=== PATIENT | female | born 1950 | race African-American/Black ===

== ENCOUNTER 2017-11-11 12:30 | Emergency (ER) | END 2017-11-11 19:52 | disposition left against medical advice (07) ==

== ENCOUNTER 2018-01-08 16:53 | Inpatient (IN) | END 2018-01-09 14:35 | disposition home or self-care (01) | DRG 378 ==

== ENCOUNTER 2018-02-18 18:52 | Inpatient (IN) | END 2018-02-19 20:35 | disposition short-term general hospital (02) | DRG 378 ==

== ENCOUNTER 2018-07-27 17:06 | Emergency (ER) | END 2018-07-27 22:20 | disposition home or self-care (01) ==

== ENCOUNTER 2018-10-20 18:36 | Inpatient (IN) | payer OTHER ==
[~2018-10-20] VITALS: Ht 172.7 cm; Wt 126.0 kg
[~2018-10-20 18:36] MED LIST: DIAZ2TAB3 PO; METO-319 PO; PANT40TA4 PO; PRAV20TA63 PO; SUCR1TAB56 PO; TRAZ-111 PO; [UNRECOGNIZED DRUG - CODE] PO
[2018-10-21] VITALS (9 sets, daily range): BP systolic 117–155; BP diastolic 65–89; PULSE 62–76; RESP 17–20; Ht 172.7 cm; Wt 126.0 kg
[2018-10-21] MEDS ORDERED: SOD CHLORIDE 0.9% 1,000 ML IV STA (00:04)
[2018-10-21] MEDS ORDERED: SOD CHLORIDE 0.9% 250 ML IV* ONE (03:25)
--- NOTE | 2018-10-21 03:25 | ERD ---
ER Documentation Chief Complaint Chief Complaint blood in stool for 3 days, lower AP w/ SOB/weakness. hx of anemia HPI This very pleasant 67-year female comes in with complaints of blood in her stool for the past 3 days with no abdominal pain. She complains of weakness as well. She has a history of anemia and GI bleed in the past. Denies any fevers chills nausea or vomiting. Denies any chest pain. Denies any palpitations. ROS All systems reviewed and are negative except as per history of present illness. Medications Home Meds Reported Medications Trazodone Hcl* (Trazodone Hcl*) 50 Mg Tablet, 100 MG PO QHS, #30 TAB 07/27/18 Verapamil Hcl* (Verapamil ER*) 300 Mg Cap24h.pel, 300 MG PO HS, CAP 07/27/18 Metoprolol Succinate* (Toprol XL*) 50 Mg Tab.er.24h, 50 MG PO DAILY, #30 TAB 07/27/18 Diazepam* (Diazepam*) 2 Mg Tablet, 2 MG PO Q12H, TAB 01/04/18 Pantoprazole* (Pantoprazole*) 40 Mg Tablet.dr, 40 MG PO AC BREAKFAST DINNER, TAB 01/04/18 Sucralfate* (Carafate*) 1 Gm Tab, 1 GM PO BID, TAB 01/04/18 Pravastatin Sodium* (Pravastatin Sodium*) 20 Mg Tablet, 20 MG PO HS, TAB 01/04/18 Allergies Allergies: Coded Allergies: Penicillins (Verified Allergy, Mild, 07/27/18) PMhx/Soc History of Surgery: Yes (HYSTERECTOMY,LUMBAR SX,GASTRIC BYPASS, tonsilectomy ) Anesthesia Reaction: No Hx Neurological Disorder: No Hx Respiratory Disorders: No Hx Cardiac Disorders: Yes (HTN,HYPERLIPIDEMIA) Hx Psychiatric Problems: Yes (anxiety ) Hx Miscellaneous Medical Probl: Yes (ulcer ) Hx Alcohol Use: No Hx Substance Use: No Hx Tobacco Use: No Smoking Status: Former smoker Physical Exam Vitals Vital Signs Date Temp Pulse Resp B/P (MAP) Pulse Ox O2 O2 Flow FiO2 Time Delivery Rate 10/21/18 98.4 70 17 133/84 100 Room Air 02:00 (100) 10/20/18 97.9 75 22 147/84 98 19:12 (105) Physical Exam Const: No acute distress Head: Atraumatic Eyes: Normal Conjunctiva ENT: Normal External Ears, Nose and Mouth. Neck: Full range of motion. No meningismus. Resp: Clear to auscultation bilaterally Cardio: Regular rate and rhythm, no murmurs Abd: Soft, non tender, non distended. Normal bowel sounds Skin: No petechiae or rashes Back: No midline or flank tenderness Ext: No cyanosis, or edema Neur: Awake and alert Psych: Normal Mood and Affect Result Diagram: 10/21/188 10/21/18 0138 Results 24 hrs Laboratory Tests Test 10/21/18 01:38 White Blood Count 5.7 10^3/ul Red Blood Count 2.56 10^6/ul Hemoglobin 7.2 g/dl Hematocrit 23.3 % Mean Corpuscular Volume 91.0 fl Mean Corpuscular Hemoglobin 28.1 pg Mean Corpuscular Hemoglobin Concent 30.9 g/dl Red Cell Distribution Width 14.5 % Platelet Count 188 10^3/UL Mean Platelet Volume 9.8 fl Immature Granulocytes % 0.300 % Neutrophils % 57.3 % Lymphocytes % 20.5 % Monocytes % 11.4 % Eosinophils % 10.0 % Basophils % 0.5 % Nucleated Red Blood Cells % 0.0 /100WBC Immature Granulocytes # 0.020 10^3/ul Neutrophils # 3.3 10^3/ul Lymphocytes # 1.2 10^3/ul Monocytes # 0.7 10^3/ul Eosinophils # 0.6 10^3/ul Basophils # 0.0 10^3/ul Nucleated Red Blood Cells # 0.0 10^3/ul Absolute Reticulocyte Count 0.063 X10^6 Percent Reticulocyte Count 2.5 % Sodium Level 140 mmol/L Potassium Level 4.0 mmol/L Chloride Level 108 mmol/L Carbon Dioxide Level 22 mmol/L Anion Gap 10 Blood Urea Nitrogen 30 mg/dl Creatinine 1.86 mg/dl Est Glomerular Filtrat Rate mL/min 33 mL/min Glucose Level 104 mg/dl Calcium Level 9.6 mg/dl Total Bilirubin 0.0 mg/dl Direct Bilirubin 0.00 mg/dl Indirect Bilirubin 0.0 mg/dl Aspartate Amino Transf (AST/SGOT) 15 IU/L Alanine Aminotransferase (ALT/SGPT) 16 IU/L Alkaline Phosphatase 111 IU/L Lactate Dehydrogenase 363 IU/L Total Protein 6.3 g/dl Albumin 3.4 g/dl Globulin 2.90 g/dl Albumin/Globulin Ratio 1.17 Current Medications Medications Dose Sig/Aleksander Start Time Status Last (Trade) Ordered Route PRN Stop Time Admin Dose Reason Admin Sodium 1,000 ml @ Q1H STAT 10/21/18 DC 10/21/18 Chloride 1,000 mls/hr IV 00:04 02:03 10/21/18 01:03 Procedures/MDM Medical decision making: Is a 67-year female with lower GI bleed. History of in the past as well. The patient is anemic and 1 and is symptomatic. Will be transfused 1 unit of PRBC here in the ER. Admitted to Dr. Dodd. Consult placed with Dr. brown in EMR Departure Diagnosis: Primary Impression: GIB (gastrointestinal bleeding) GI bleed type/associated pathology: unspecified gastrointestinal hemorrhage type Qualified Codes: K92.2 - Gastrointestinal hemorrhage, unspecified Condition: Serious ARLEN MEDEL Oct 21, 2018 03:25
[2018-10-21] MEDS ORDERED: ACETAMINOPHEN 325 MG TAB PO SCH (03:30)
[2018-10-21] MEDS ORDERED: morphine 2 MG INJ IV PRN (03:30)
[2018-10-21] MEDS ORDERED: FUROSEMIDE 40 MG INJ IV SCH (03:30)
[2018-10-21] MEDS ORDERED: ACETAMINOPHEN 325 MG TAB PO PRN (03:30)
[2018-10-21] MEDS ORDERED: ONDANSETRON 4 MG INJ IV PRN (03:30)
[2018-10-21] MEDS: PANTOPRAZOLE 40 MG INJ IV SCH ×2 (05:42→17:31)
[2018-10-21] MEDS: SOD CHLORIDE 0.9% 1,000 ML IV SCH ×2 (06:16→13:45)
--- NOTE | 2018-10-21 06:30 | NUR ---
Patient admitted Pt arrived to 6W Tele from ED. Pt A&O x 4. VSS, RA. Sinus rhythm on the monitor. Pt denies pain; no s/s of distress, resting in bed comfortably. Skin intact; does not want pictures at this time. Fall precautions initiated with bed alarm on. Patient oriented to room, call light within reach, hourly rounding standards explained; instructed patient to call for assistance as needed. SCDs applied. Pt clean and dry; all needs and concerns attended to. Admitting orders input by Dr. George. First unit of PRBCs begun. Endorsed pt to AM RN for continuity of care.
[2018-10-21] MEDS ORDERED: METOPROLOL (XL) 50 MG TAB PO SCH (09:00)
--- NOTE | 2018-10-21 10:20 | HP ---
Date/Time of Note Date/Time of Note DATE: 10/21/18 TIME: 09:38 Assessment/Plan VTE Prophylaxis Risk score (from [facility])>0 risk: 2 SCD applied (from [facility]): Yes Pharmacological prophylaxis: NA/contraindicated Pharm contraindication: bleeding Lines/Catheters IV Catheter Type (from [facility]): Peripheral IV Urinary Cath still in place: No Assessment/Plan Assessment/Plan 67-year-old female with: 1. Recurrent and multiple episode of GI bleed/melena, On her last admission approximately few months ago, patient had EGD with findings of gastritis, colonoscopy x2 with no localization of bleeding she also had a bleeding scan which was also negative. She also had capsule endoscopy as an outpatient with Dr. Rueda, apparently no localization of bleeding. She presented again with melena and ongoing GI bleeding, hemoglobin of 7.2, receiving 2 units of packed red blood cells currently. Discussed with GI, Dr. Rueda, he has requested for the patient to be transferre d to [facility] so he can do a double balloon endoscopy. 2. Chronic kidney disease III, renal function stable. Monitor. 3. Hypertension: Continue current medications. 4. Anxiety disorder: Continue benzodiazepines. 5. Hyperlipidemia: Continue statins Prophylaxis: SCDs for DVT prophylaxis, already on proton pump inhibitors Disposition: Transfuse 2 units of packed red blood cells today, patient to be transferred to [facility] telemetry bed for double balloon endoscopy by Dr. Rueda. Result Diagram: 10/21/18 0138 10/21/18 0138 Results 24hrs Laboratory Tests Test 10/21/18 01:37 10/21/18 01:38 Iron Level 24 L Total Iron Binding Capacity 260 Percent Iron Saturation 9 L Vitamin B12 Level 630 Folate 13.5 White Blood Count 5.7 Red Blood Count 2.56 #L Hemoglobin 7.2 #L Hematocrit 23.3 #L Mean Corpuscular Volume 91.0 Mean Corpuscular Hemoglobin 28.1 L Mean Corpuscular Hemoglobin Concent 30.9 L Red Cell Distribution Width 14.5 Platelet Count 188 Mean Platelet Volume 9.8 Immature Granulocytes % 0.300 Neutrophils % 57.3 Lymphocytes % 20.5 Monocytes % 11.4 H Eosinophils % 10.0 H Basophils % 0.5 Nucleated Red Blood Cells % 0.0 Immature Granulocytes # 0.020 Neutrophils # 3.3 Lymphocytes # 1.2 Monocytes # 0.7 Eosinophils # 0.6 H Basophils # 0.0 Nucleated Red Blood Cells # 0.0 Absolute Reticulocyte Count 0.063 Percent Reticulocyte Count 2.5 H Sodium Level 140 Potassium Level 4.0 Chloride Level 108 Carbon Dioxide Level 22 Anion Gap 10 Blood Urea Nitrogen 30 H Creatinine 1.86 H Est Glomerular Filtrat Rate mL/min 33 L Glucose Level 104 Calcium Level 9.6 Total Bilirubin 0.0 L Direct Bilirubin 0.00 Indirect Bilirubin 0.0 Aspartate Amino Transf (AST/SGOT) 15 Alanine Aminotransferase (ALT/SGPT) 16 Alkaline Phosphatase 111 Lactate Dehydrogenase 363 Total Protein 6.3 Albumin 3.4 Globulin 2.90 Albumin/Globulin Ratio 1.17 HPI/ROS Admit Date/Time Admit Date/Time Oct 21, 2018 at 03:21 Hx of Present Illness Chief complaint: Dark stools and lethargy History of presenting illness: This is a 67-year-old female with history of hypertension, known history of GI bleeding and well known to Dr. Rueda, patient has been having episodes of lower GI bleed and melena as for the past few months, she had multiple EGDs and colonoscopies with no clear source of bleeding, she had a capsule endoscopy as an outpatient with no clear source of bleeding and next step was for her to have a double balloon endoscopy which was in the process of being authorized and scheduled, patient presents at [facility] ER with yet again melena x 5 days, increasing lethargy x 4 days and was found to have a hemoglobin of 7.2. I have discussed the case with Dr. Rueda her primary wardrobe assistant who has requested for her to be transferred to [facility] so he can do a double balloon endoscopy. The patient's IPA, [facility], has been notified, they agree with transfer to [place], we are waiting a for a telemetry bed in order to proceed with transfer. Patient will be scheduled for the procedure by Dr. Rueda once transfer is confirmed. Patient feels better this morning, she received 1 unit of packed red blood cells already, we are giving the second unit. Will check CBC posttransfusion. She has not had any bowel movements yet this morning. Last BM with melena was yesterday. She remains stable on telemetry, EKG was normal sinus rhythm. She has some low to mid abdomen pain which is a new symptoms compared to her previous admissions with GI bleeding. No nausea or vomiting. ROS Constitutional: no complaints Eyes: no complaints ENT: no complaints Respiratory: no complaints Cardiovascular: no complaints Gastrointestinal: pain (Mild abdominal pain/discomfort), blood (Ongoing melena) Genitourinary: no complaints Musculoskeletal: no complaints Skin: no complaints Neurologic: no complaints Endocrine: no complaints Lymphatic: no complaints Psychological: no complaints PMH/Family/Social Past Medical History 1. Recurrent and multiple episodes of GI bleeding suspecting small bowel AVMs possibly, s/p capsule endoscopy outpatient, needs double balloon endoscopy per Dr Rueda. 2. Chronic kidney disease stage III. 3. Hypertension. 4. Anxiety disorder. 5. Hyperlipidemia. Medications Current Medications Pantoprazole (Protonix Iv) 40 mg Q12H IV Last administered on 10/21/18at 05:42; Admin Dose 40 MG; Start 10/21/18 at 06:00 Sodium Chloride 1,000 ml @ 100 mls/hr Q10H IV Last administered on 10/21/18at 06:16; Admin Dose 100 MLS/HR; Start 10/21/18 at 03:30 Acetaminophen (Tylenol Tab) 650 mg Q4H PRN PO pain, fever; Start 10/21/18 at 03:30 Ondansetron HCl (Zofran Inj) 4 mg Q4H PRN IV nausea Last administered on 10/21/18at 04:07; Admin Dose 4 MG; Start 10/21/18 at 03:30 Morphine Sulfate (morphine) 2 mg Q2H PRN IV pain Last administered on 10/21/18at 04:07; Admin Dose 2 MG; Start 10/21/18 at 03:30 Furosemide (Lasix) 40 mg ONCE IV ; Start 10/21/18 at 03:30; Stop 10/22/18 at 03:29 Acetaminophen (Tylenol Tab) 650 mg ONCE PO Last administered on 10/21/18at 05:42; Admin Dose 650 MG; Start 10/21/18 at 03:30; Stop 10/22/18 at 03:29 Hydralazine HCl (Apresoline) 25 mg Q6H PRN PO sbp>160; Start 10/21/18 at 03:30 Metoprolol Succinate (Toprol Xl) 50 mg DAILY PO Last administered on 12/27/18at 08:36; Admin Dose 50 MG; Start 10/21/18 at 09:00 Atorvastatin Calcium (Lipitor) 10 mg DAILY@21 PO ; Start 10/21/18 at 21:00 Miscellaneous Information 300 mg HS PO ; Start 10/21/18 at 21:00; Status UNV Coded Allergies: Penicillins (Verified Allergy, Mild, 07/27/18) Past Surgical History 1. Status post gastric bypass surgery 15 years ago. 2. Status post colonoscopies, EGDs, capsule endoscopy as outpatient. Past Surgical Hx: endoscopy, other Family History Significant Family History: no pertinent family hx Social History Alcohol Use: rarely Smoking Status: Former smoker Drug Use: none Exam/Review of Systems Vital Signs Vitals Vital Signs Date Temp Pulse Resp B/P (MAP) Pulse Ox O2 O2 Flow FiO2 Time Delivery Rate 10/21/18 76 08:34 10/21/18 98.1 17 140/75 97 Room Air 07:40 (96) Exam Constitutional: alert, oriented, well developed Respiratory: clear to auscultation, normal air movement Cardiovascular: regular rate and rhythm, nl pulses Gastrointestinal: soft, tender (Mild mid to lower abdomen) Musculoskeletal: nl extremities to inspection, nl gait and stance Extremities: normal pulses, other (No edema, clubbing or cyanosis) Neurological: AGRICULTURAL REAL ESTATE AGENT II-XII intact, nl mental status, nl speech, other (Generalized weakness, improving.) DAMION DE ANDA Oct 21, 2018 09:52
--- NOTE | 2018-10-21 10:22 | PDOCDIS ---
Discharge Instructions CONDITION [id number] Patient Condition: [id number] Stable HOME CARE INSTRUCTIONS: [id number] Special Diet: [id number] npo ACTIVITY: [id number] Activity Restrictions: [id number] Slowly Increase Activity FOLLOW UP/APPOINTMENTS Follow-up Plan Transfer to [facility], telemetry bed, for double balloon endoscopy to be done by MORIS, DAMION Jara Oct 21, 2018 10:22
[2018-10-21] MEDS ORDERED: PEG/ELECTROLYTES 4L BTL PO ONE (12:30)
--- NOTE | 2018-10-21 14:08 | NUR ---
SW: AHCD & INITIAL PSYCHOSOCIAL ASSESSMENT SW met with this 67-year-old Argentine speaking female at bedside for AHCD & initial psychosocial assessment. Patient denies having an AHCD, and stated that she is not interested in completing one. However, she verbally designated her daughter Samantha Stevens ([phone]), daughter Mary Ann ([phone]) and granddaughters Ayanna Cooley and Batsheva ([phone]) as surrogate spokespersons. However, she stated that if her children and grandchildren do not agree on making a decision, then she wants her eldest daughter Mary Ann to be the primary decision maker. Patient states she lives at home with her two granddaughters at [address] [place] [address] [address] [address]. States she is retired and receives SS and pension from [employer]. States she is fully independent at home with her ADL's, and states that she drives a car. Patient denies any questions/ concerns at this time. SW remains available as needed throughout patient's treatment process.
[2018-10-21] MEDS ORDERED: morphine SULFATE/PF (2 MG/2 ML) SYG IV PRN (14:30)
--- NOTE | 2018-10-21 19:00 | NUR ---
TRANSFER TO [facility] Patient to be transferred to [facility] for procedure. Report given to Kirsten CASTRO . Transfer packet completed. Pickup [phone]. Will endorse to security shift supervisor.
--- NOTE | 2018-10-21 19:00 | NUR ---
EOSS Patient admitted for GI Bleed. 2 units PRBC given with lasix IV given between transfusion. Stable vital signs. Will be transferred to [place] [id number] (see note). Will endorse to night shift manager.
--- NOTE | 2018-10-21 19:06 | CONS ---
DATE OF ADMISSION: 10/21/2018 DATE OF CONSULTATION: TYPE OF CONSULTATION: Gastroenterology. Dear Dr. De Anda: Thank you for asking me to see Mrs. Ram in consultation. HISTORY OF PRESENT ILLNESS: As you know, the patient is a 67-year-old female who at this time is admitted to the hospital because of persistent melenic stool that she has been passing for the past 4 days. Stool is black and sometimes there is a red tinge when the stool goes into the commode. On admission, hemoglobin was 7.2. In fact, it was today. No prior hemoglobin is available at this time. The patient is being transfused currently. The patient says stool is mostly black. She has had mult iple colonoscopies, upper endoscopies and capsule endoscopies are all performed. No source of bleedi ng noted, but it was felt that one time she has severe diverticulosis and bright red bleeding coming from the colon. it was felt that she may have any GI bleeding from the diverticulosis; however, the GI bleeding scan was negative. Upper endoscopy showed evidence of gastrojejunostomy, which were arun atric surgery. She had a Aleksander-en-Y surgery at that time, but no severe ulcer disease noted at that t jes. REVIEW OF SYSTEM: Positive in that she has history of hypertension, no diabetes. She has got anxiet y, hyperlipidemia, chronic kidney disease. MEDICATIONS PRIOR TO THE ADMISSION: Include: 1. Metoprolol. 2. Pravastatin. 3. Verapamil. 4. Diazepam. 5. Trazodone. 6. Pantoprazole 7. Carafate. PHYSICAL EXAMINATION: GENERAL: The patient is a 67-year-old -[place] female who at this time is obese. CARDIOVASCULAR: Normal heart sounds. RESPIRATORY: Normal breath sounds. ABDOMEN: Showed unremarkable findings except surgical scars. LABORATORY WORKUP: Hemoglobin 7.3, hematocrit 23.3, platelets 188,000, WBC 5700, eosinophils 10%. T he reason for that is not very clear. Potassium 4.0, BUN 30, creatinine was 1.86. Iron 24, TIBC 260. Bilirubin 0.0, AST 15, ALT 16, alkal ine phosphatase 111, AST 363. B12 is 620. Folic acid is 13.5. IMAGING STUDIES: Not available at this time. CLINICAL IMPRESSION: 1. The patient at this time appears that she has melenic stool whenever she got exam. Stool is pret ty dark with very remote on the stool. This melenic stool appears to be suggestive that the bl eeding is coming from the upper gastrointestinal tract, so peptic ulcer disease or marginal ulcer nee ds to be ruled out. Certainly, diverticular bleed can present in this fashion but bleeding is not re d. Small old bleeding is a possibility. 2. Hypertension. 3. Chronic kidney disease. 4. Anxiety. PLAN: At this time, we will proceed with upper endoscopy, lower endoscopy and double balloon enteros copy. Once again, doctor, thank you for this consultation. Dictated By: ALISHA GARSIA MD [place]/NTS Conf#: [id number] DID#: [id number] CC: DAMION DE ANDA MD; HIRO BENDER MD;*[facility]*
--- NOTE | 2018-10-21 20:40 | NUR ---
Discharge Note: Gave report to EMT. Pt RL=661/86, pt states she thinks she is just a little excited about the transfer. EMT would like BP medication to be given. Pt agreed to take BP medication. Pt's verapamil currently is not loaded in the [facility]. Pt has PRN order for hydralazine. Hydralazine given. Pt current JL=242/84. Pt's current Hg=9.1, informed EMT to inform pt's nurse at [place]. Pt currently leaving with EMT.
[2018-10-21] MEDS ORDERED: VERAPAMIL HCL 300 MG PO SCH (21:00)
[2018-10-21] MEDS ORDERED: ATORVASTATIN 10 MG TAB PO SCH (21:00)
[2018-10-21] MEDS ORDERED: VERAPAMIL (SR) 120 MG TAB PO SCH (21:00)
[2018-10-21] MEDS ORDERED: VERAPAMIL (SR) 180 MG TAB PO SCH (21:00)
--- NOTE | 2018-10-23 00:02 | DS ---
DATE OF ADMISSION: 10/21/2018 DATE OF DISCHARGE: 10/21/2018 ADMITTING PHYSICIAN: Dr. Bender. DISCHARGING PHYSICIAN: Dr. De Anda. CHIEF COMPLAINT ON ADMISSION: Dark stools and lethargy. BRIEF HISTORY OF PRESENT ILLNESS: This is a 67-year-old female with history of hypertension, known h istory of GI bleeding, well known to Dr. Rueda. The patient has had multiple episodes of with lower GI bleeding and melena for the past few months and had multiple EGDs and colonoscopies done with no clear source of bleeding. She also had a capsule endoscopy with Dr. Rueda as an outpatient with no clear source of bleeding. The next step was for her to have double balloon endoscopy, which was in t he process of being scheduled when the patient showed up with 5 days of lethargy and melena. She was found to be severely anemic and symptomatic at 7.2. She was admitted to a telemetry bed for further gastroenterology evaluation. HOSPITAL COURSE: I did contact Dr. Rueda. Upon admission, he did request for the patient to be tra nsferred to [facility] in order to do with a double balloon endoscopy. After this was aut horized by the patient's IPA. A telemetry bed was obtained and I did give a sign out to Dr. Mathew croft who is the accepting hospitalist. The patient is scheduled for the double balloon endoscopy at 11: 30 in the morning on 10/22. The patient was transferred to [facility] in the evening of 12/22. She did receive 2 units of packed red blood cells and her hemoglobin post-transfusion was 9.1. DISPOSITION: Transfer to [facility]. DISCHARGE CONDITION: Stable. DISCHARGE DIET: Clears and to be n.p.o. after midnight for procedure on 10/22. FOLLOWUP: The patient will be admitted by Dr. Mathew Monte at [facility] and Dr. Rueda will be performing double balloon endoscopy and following the patient from the gastroenterology standpoin t at [facility]. DISCHARGE DIAGNOSES: 1. Recurrent and multiple episodes of gastrointestinal bleeding with melena. 2. Symptomatic anemia. 3. Chronic kidney disease stage III. 4. Hypertension. 5. Anxiety disorder. 6. Hyperlipidemia. DISCHARGE MEDICATIONS: 1. Protonix 40 mg IV q.12h. 2. Normal saline at 100 mL an hour. 3. Tylenol 650 mg p.o. q.4 hours p.r.n. pain or fever. 4. Zofran 4 mg q.4 hours p.r.n. nausea. 5. Morphine sulfate 2 mg q.2 hours p.r.n. pain. 6. Hydralazine 25 mg p.o. q.6 hours p.r.n. systolic blood pressure above 160. 7. Metoprolol succinate 50 mg p.o. daily. 8. Lipitor 10 mg p.o. daily. Dictated By: DAMION DE ANDA MD NK/LEE Conf#: [id number] DID#: [id number] CC: HIRO BENDER MD;*[facility]*
== END 2018-10-21 20:57 | disposition short-term general hospital (02) | DRG 379 ==
LOC: E/R 18:36 → 6WM 10-21 03:21
PROVIDERS: ADMIT Legal Medicine; ATTEND Legal Medicine
PROC: 30233N1 Transfusion of Nonautologous Red Blood Cells into Peripheral Vein, Percutaneous Approach (ICD-10-PCS; principal; 2018-10-21)
DX: K92.1 Melena (principal); I12.9 Hypertensive chronic kidney disease with stage 1 through stage 4 chronic kidney disease, or unspecified chronic kidney disease; N18.3 Chronic kidney disease, stage 3 (moderate); F41.9 Anxiety disorder, unspecified; E78.5 Hyperlipidemia, unspecified; D64.9 Anemia, unspecified
CPT/HCPCS: 36415; 36430; 80053; 82607; 82746; 83540; 83615; 85025; 85045; 86850; 86870; 86900; 86901; 86920; 93005; C9113; J1940; J2270; J2274; J2405; J7030; J7040; P9016